=== PATIENT | female | born 1935 | race Two or more races ===

== ENCOUNTER 2019-05-11 13:24 | Inpatient (IN) | payer BC, OTHER ==
[~2019-05-11] VITALS: Ht 162.6 cm; Wt 88.5 kg
[2019-05-11] MEDS ORDERED: MEMA7CAP2 PO (14:08)
[2019-05-11] MEDS ORDERED: AMLO10TA7 PO (14:08)
[2019-05-11] MEDS ORDERED: ROPI0.257 PO (14:08)
[2019-05-11] MEDS ORDERED: CLOP75TA3 PO (14:08)
[2019-05-11] MEDS ORDERED: PREG75 PO (14:08)
[2019-05-11] MEDS ORDERED: LOSA50TA64 PO (14:08)
[2019-05-11] MEDS ORDERED: MEMA28CA5 PO (14:12)
[2019-05-11] MEDS ORDERED: ACETAMINOPHEN 500 MG TABLET PO ONE (14:15)
[2019-05-11 14:30] LABS: BASOPHILS % (AUTO) 0.8 % (0.0-2.0); HEMATOCRIT 33.8 % (36-46); HEMOGLOBIN 11.3 g/dL (12.0-16.0); LYMPHOCYTES # (AUTO) 0.5 K/uL (1.0-4.8); LYMPHOCYTES % (AUTO) 6.4 % (22.0-44.0); MEAN CORPUSCULAR HGB CONC 33.3 G/dL (31.0-37.0); MEAN CORPUSCULAR VOLUME 84 fL (80-100); MONOCYTES # (AUTO) 0.5 K/uL (0.1-1.0); MONOCYTES % (AUTO) 7.1 % (2.0-9.0); NEUTROPHILS # (AUTO) 6.2 K/uL (1.8-7.7); NEUTROPHILS % (AUTO) 83.7 % (40.0-70.0); PLATELET COUNT (AUTO) 288 K/uL (150-450); RED BLOOD CELL COUNT(AUTO) 4.02 MIL/uL (4.00-5.20); RED CELL DISTRIBUTION WIDTH 13.7 % (11.5-14.5)
[2019-05-11 14:50] LABS: ALBUMIN 2.2 g/dL (3.4-5.0); BILIRUBIN,TOTAL 0.3 mg/dL (0.1-1.0); CREATININE 2.43 mg/dL (0.60-1.30); POTASSIUM 3.9 mmol/L (3.5-5.1); TOTAL PROTEIN, SERUM 6.7 g/dL (6.4-8.2)
[2019-05-11] MEDS ORDERED: SODIUM CHLORIDE 0.9% 1,000 ML IV ONE (15:15)
[2019-05-11 15:43] LABS: PROTHROMBIN TIME 10.1 SEC (9.4-11.6)
[2019-05-11] MEDS ORDERED: HEPARIN SODIUM 25000 UNITS/D5W 250 ML IV PRN ×2 (16:00)
[2019-05-11] MEDS ORDERED: HEPARIN SODIUM,PORCINE 5,000 UNITS/ML VIAL IVP PRN ×2 (16:00)
[2019-05-11] MEDS ORDERED: HEPARIN SODIUM,PORCINE 5,000 UNITS/ML VIAL IVP ONE (16:00)
[2019-05-11] MEDS ORDERED: BISACODYL 10 MG RECTAL RECTAL SUPPOSITORY PR PRN (16:00)
[2019-05-11] MEDS: SODIUM CHLORIDE 0.9% 1,000 ML IV SCH (16:44)
[2019-05-11] MEDS ORDERED: MORPHINE SULFATE 2 MG/ML SYRINGE IVP ONE (16:45)
[2019-05-11] MEDS: MULTIVITAMINS WITH MINERALS, THERAPEUTIC TABLET PO SCH (17:23)
[2019-05-11 21:43] VITALS: BP 114/53
[2019-05-11] MEDS: DOCUSATE SODIUM 100 MG CAPSULE PO SCH (21:48)
[2019-05-12 00:23] VITALS: BP 111/73
[2019-05-12] MEDS ORDERED: PNEUMOCOCCAL VACCINE POLYVALENT 0.5 ML VIAL [PPSV23] IM ONE (01:30)
[2019-05-12] MEDS ORDERED: INFLUENZA VIRUS VACCINE QVS 2019-20 (3YR+)/PF 60 MCG/0.5 ML SYRINGE IM ONE (01:30)
[2019-05-12 04:00] VITALS: BP 122/61
[2019-05-12] MEDS: SODIUM CHLORIDE 0.9% 1,000 ML IV SCH ×2 (06:30→19:04)
[2019-05-12] MEDS: ACETAMINOPHEN 325 MG TABLET PO PRN ×2 (06:53→20:57)
[2019-05-12 07:34] LABS: CALCIUM, TOTAL 8.5 mg/dL (8.8-10.5); CREATININE 1.64 mg/dL (0.60-1.30); POTASSIUM 3.5 mmol/L (3.5-5.1)
[2019-05-12 07:47] LABS: APPEARANCE,URINE CLOUDY (CLEAR); BILIRUBIN,URINE NEGATIVE (NEGATIVE); GLUCOSE, URINE (UA) NEGATIVE (NEGATIVE); KETONES,URINE NEGATIVE (NEGATIVE); LEUKOCYTE ESTERASE ,URINE MODERATE (NEGATIVE); NITRATE,URINE NEGATIVE (NEGATIVE); OCCULT BLOOD,URINE MODERATE (NEGATIVE); PROTEIN,URINE NEGATIVE (NEGATIVE); UROBILINOGEN,URINE 0.2 mg/dL (<=1.0)
[2019-05-12 08:06] LABS: BACTERIA,URINE Many /HPF (None Seen); SQUAMOUS EPITHELIAL CELL,UR Many /LPF (None Seen)
[2019-05-12 08:23] VITALS: BP 115/72
[2019-05-12] MEDS: MULTIVITAMINS WITH MINERALS, THERAPEUTIC TABLET PO SCH (08:36)
[2019-05-12] MEDS: FAMOTIDINE 20 MG TABLET PO SCH (08:36)
[2019-05-12] MEDS: DOCUSATE SODIUM 100 MG CAPSULE PO SCH ×2 (08:36→20:57)
[2019-05-12] MEDS: MORPHINE SULFATE 2 MG/ML SYRINGE IVP PRN ×3 (10:16→21:54)
[2019-05-12] MEDS ORDERED: HEPARIN SODIUM,PORCINE 5,000 UNITS/ML VIAL IVP ONE (10:30)
[2019-05-12] MEDS ORDERED: HEPARIN SODIUM,PORCINE 5,000 UNITS/ML VIAL IVP PRN ×2 (10:30)
[2019-05-12] MEDS ORDERED: HEPARIN SODIUM 25000 UNITS/D5W 250 ML IV PRN (10:30)
[2019-05-12 10:53] LABS: BASOPHILS % (AUTO) 0.7 % (0.0-2.0); EOSINOPHILS % (AUTO) 3.7 % (1.0-6.0); HEMATOCRIT 32.1 % (36-46); HEMOGLOBIN 10.9 g/dL (12.0-16.0); LYMPHOCYTES # (AUTO) 0.6 K/uL (1.0-4.8); LYMPHOCYTES % (AUTO) 9.8 % (22.0-44.0); MEAN CORPUSCULAR HEMOGLOBIN 28.5 pg (26.0-34.0); MEAN CORPUSCULAR HGB CONC 33.9 G/dL (31.0-37.0); MEAN CORPUSCULAR VOLUME 84 fL (80-100); MONOCYTES # (AUTO) 0.4 K/uL (0.1-1.0); MONOCYTES % (AUTO) 7.7 % (2.0-9.0); NEUTROPHILS # (AUTO) 4.5 K/uL (1.8-7.7); NEUTROPHILS % (AUTO) 78.1 % (40.0-70.0); PLATELET COUNT (AUTO) 250 K/uL (150-450); RED BLOOD CELL COUNT(AUTO) 3.81 MIL/uL (4.00-5.20); RED CELL DISTRIBUTION WIDTH 13.6 % (11.5-14.5)
[2019-05-12 12:00] VITALS: BP 104/58
[2019-05-12 15:52] LABS: PROTHROMBIN TIME 10.5 SEC (9.4-11.6)
[2019-05-12 16:23] VITALS: BP 115/57
[2019-05-12 21:11] VITALS: BP 110/50
[2019-05-13] MEDS: ACETAMINOPHEN 325 MG TABLET PO PRN ×2 (00:37→09:12)
[2019-05-13 00:41] VITALS: BP 117/59
[2019-05-13] MEDS: MORPHINE SULFATE 2 MG/ML SYRINGE IVP PRN ×5 (01:51→22:56)
[2019-05-13 04:39] VITALS: BP 143/73
[2019-05-13 08:08] VITALS: BP 108/57
[2019-05-13 08:50] LABS: BASOPHILS % (AUTO) 0.8 % (0.0-2.0); EOSINOPHILS % (AUTO) 2.8 % (1.0-6.0); HEMATOCRIT 31.5 % (36-46); HEMOGLOBIN 10.5 g/dL (12.0-16.0); LYMPHOCYTES # (AUTO) 0.6 K/uL (1.0-4.8); LYMPHOCYTES % (AUTO) 12.4 % (22.0-44.0); MEAN CORPUSCULAR HEMOGLOBIN 28.1 pg (26.0-34.0); MEAN CORPUSCULAR HGB CONC 33.4 G/dL (31.0-37.0); MEAN CORPUSCULAR VOLUME 84 fL (80-100); MONOCYTES # (AUTO) 0.5 K/uL (0.1-1.0); NEUTROPHILS # (AUTO) 3.9 K/uL (1.8-7.7); PLATELET COUNT (AUTO) 219 K/uL (150-450); RED BLOOD CELL COUNT(AUTO) 3.74 MIL/uL (4.00-5.20); RED CELL DISTRIBUTION WIDTH 13.7 % (11.5-14.5)
[2019-05-13 08:54] LABS: CALCIUM, TOTAL 8.6 mg/dL (8.8-10.5); POTASSIUM 3.1 mmol/L (3.5-5.1)
[2019-05-13] MEDS: FAMOTIDINE 20 MG TABLET PO SCH (09:09)
[2019-05-13] MEDS: DOCUSATE SODIUM 100 MG CAPSULE PO SCH ×2 (09:09→20:59)
[2019-05-13] MEDS: MULTIVITAMINS WITH MINERALS, THERAPEUTIC TABLET PO SCH (09:09)
[2019-05-13] MEDS: SODIUM CHLORIDE 0.9% 1,000 ML IV SCH (09:09)
[2019-05-13] MEDS ORDERED: DEXTROSE 50%-WATER 25 GM/50 ML SYRINGE IVP PRN (11:00)
[2019-05-13 11:34] VITALS: BP 131/68
[2019-05-13] MEDS: INSULIN LISPRO 100 UNITS/ML SQ PRN ×2 (12:11→16:37)
[2019-05-13] MEDS: APIXABAN 5 MG TABLET PO SCH ×2 (12:40→20:59)
[2019-05-13] MEDS: POTASSIUM CHL 10 MEQ/WATER 50 ML IV PRN ×3 (13:50→16:36)
[2019-05-13 14:08] LABS: GLUCOMETER DEV NAME(LOC) 6N.2; GLUCOSE,POINT OF CARE 229 MG/DL (70-110)
[2019-05-13 15:29] VITALS: BP 137/76
[2019-05-13 16:42] LABS: GLUCOMETER DEV NAME(LOC) 6N.2; GLUCOSE,POINT OF CARE 183 MG/DL (70-110)
[2019-05-13] MEDS: LORazepam 2 MG/ML VIAL IVP PRN (17:30)
[2019-05-13 20:25] VITALS: BP 126/71
[2019-05-14] VITALS (7 sets, daily range): BP systolic 110–150; BP diastolic 70–106
[2019-05-14] MEDS: LORazepam 2 MG/ML VIAL IVP PRN (00:53)
[2019-05-14] MEDS: MORPHINE SULFATE 2 MG/ML SYRINGE IVP PRN ×2 (02:50→08:04)
[2019-05-14] MEDS: INSULIN LISPRO 100 UNITS/ML SQ PRN ×3 (06:34→21:40)
[2019-05-14 07:34] LABS: BASOPHILS % (AUTO) 0.7 % (0.0-2.0); EOSINOPHILS % (AUTO) 1.6 % (1.0-6.0); HEMATOCRIT 31.4 % (36-46); HEMOGLOBIN 10.7 g/dL (12.0-16.0); LYMPHOCYTES # (AUTO) 1.2 K/uL (1.0-4.8); MEAN CORPUSCULAR HEMOGLOBIN 28.5 pg (26.0-34.0); MEAN CORPUSCULAR HGB CONC 34.2 G/dL (31.0-37.0); MEAN CORPUSCULAR VOLUME 84 fL (80-100); MONOCYTES # (AUTO) 0.9 K/uL (0.1-1.0); MONOCYTES % (AUTO) 11.2 % (2.0-9.0); NEUTROPHILS # (AUTO) 5.6 K/uL (1.8-7.7); NEUTROPHILS % (AUTO) 71.5 % (40.0-70.0); PLATELET COUNT (AUTO) 242 K/uL (150-450); RED BLOOD CELL COUNT(AUTO) 3.75 MIL/uL (4.00-5.20)
[2019-05-14] MEDS: MULTIVITAMINS WITH MINERALS, THERAPEUTIC TABLET PO SCH (08:03)
[2019-05-14] MEDS: FAMOTIDINE 20 MG TABLET PO SCH (08:04)
[2019-05-14] MEDS: APIXABAN 5 MG TABLET PO SCH ×2 (08:04→21:31)
[2019-05-14] MEDS: DOCUSATE SODIUM 100 MG CAPSULE PO SCH ×2 (08:04→21:31)
[2019-05-14 09:17] LABS: ALANINE AMINOTRANSFERASE 38 U/L (12-78); ALBUMIN 2.4 g/dL (3.4-5.0); ALKALINE PHOSPHATASE 93 U/L (46-116); ANION GAP 8 mmol/L (8-16); ASPARTATE AMINOTRANSFERASE 22 U/L (15-37); BILIRUBIN,TOTAL 0.3 mg/dL (0.1-1.0); CALCIUM, TOTAL 9.2 mg/dL (8.8-10.5); CARBON DIOXIDE 28 mmol/L (22-29); CHLORIDE 103 mmol/L (98-107); CREATININE 0.81 mg/dL (0.60-1.30); GLUCOSE,RANDOM 157 mg/dL (70-110); POTASSIUM 3.3 mmol/L (3.5-5.1); SODIUM SERUM 139 mmol/L (136-145); TOTAL PROTEIN, SERUM 6.4 g/dL (6.4-8.2); UREA NITROGEN, BLOOD 39 mg/dL (7-18)
[2019-05-14 09:19] LABS: GLOMERULAR FILTR. RATE CALC > 60 mL/min (>60)
[2019-05-14] MEDS: POTASSIUM CHLORIDE 20 MEQ ER TABLET PO PRN (09:34)
[2019-05-14] MEDS: ACETAMINOPHEN 325 MG TABLET PO PRN ×2 (10:55→16:18)
[2019-05-14 12:33] LABS: GLUCOMETER DEV NAME(LOC) 6N.2; GLUCOSE,POINT OF CARE 172 MG/DL (70-110)
[2019-05-14] MEDS: HYDROCODONE/ACETAMINOPHEN 5-325 MG TABLET PO PRN ×2 (17:05→21:34)
[2019-05-15] MEDS: HYDROCODONE/ACETAMINOPHEN 5-325 MG TABLET PO PRN ×6 (01:36→20:55)
[2019-05-15 04:43] VITALS: BP 144/62
[2019-05-15] MEDS: INSULIN LISPRO 100 UNITS/ML SQ PRN ×3 (05:42→17:27)
[2019-05-15 06:12] LABS: GLUCOMETER DEV NAME(LOC) 6N.2; GLUCOSE,POINT OF CARE 149 MG/DL (70-110)
[2019-05-15 06:12] LABS: GLUCOMETER DEV NAME(LOC) 6N.2; GLUCOSE,POINT OF CARE 231 MG/DL (70-110)
[2019-05-15 06:12] LABS: GLUCOMETER DEV NAME(LOC) 6N.2; GLUCOSE,POINT OF CARE 177 MG/DL (70-110)
[2019-05-15 07:54] VITALS: BP 142/64
[2019-05-15] MEDS: FAMOTIDINE 20 MG TABLET PO SCH (08:54)
[2019-05-15] MEDS: MULTIVITAMINS WITH MINERALS, THERAPEUTIC TABLET PO SCH (08:54)
[2019-05-15] MEDS: DOCUSATE SODIUM 100 MG CAPSULE PO SCH ×2 (08:54→20:56)
[2019-05-15] MEDS: APIXABAN 5 MG TABLET PO SCH ×2 (10:47→20:55)
[2019-05-15 11:04] VITALS: BP 134/99
[2019-05-15 17:06] VITALS: BP 130/82
[2019-05-15] MEDS: ATORVASTATIN CALCIUM 20 MG TABLET PO SCH (20:55)
[2019-05-15 21:12] VITALS: BP 129/62
[2019-05-16 00:30] VITALS: BP 147/79
[2019-05-16] MEDS: HYDROCODONE/ACETAMINOPHEN 5-325 MG TABLET PO PRN ×4 (00:58→21:42)
[2019-05-16] MEDS: ACETAMINOPHEN 325 MG TABLET PO PRN (04:01)
[2019-05-16 05:00] VITALS: BP 132/76
[2019-05-16 05:52] LABS: BASOPHILS % (AUTO) 0.6 % (0.0-2.0); EOSINOPHILS % (AUTO) 1.5 % (1.0-6.0); HEMATOCRIT 30.9 % (36-46); HEMOGLOBIN 10.5 g/dL (12.0-16.0); LYMPHOCYTES # (AUTO) 1.3 K/uL (1.0-4.8); LYMPHOCYTES % (AUTO) 15.3 % (22.0-44.0); MEAN CORPUSCULAR HEMOGLOBIN 28.4 pg (26.0-34.0); MEAN CORPUSCULAR VOLUME 84 fL (80-100); MONOCYTES # (AUTO) 0.5 K/uL (0.1-1.0); MONOCYTES % (AUTO) 6.2 % (2.0-9.0); NEUTROPHILS # (AUTO) 6.7 K/uL (1.8-7.7); NEUTROPHILS % (AUTO) 76.4 % (40.0-70.0); PLATELET COUNT (AUTO) 235 K/uL (150-450); RED CELL DISTRIBUTION WIDTH 13.8 % (11.5-14.5)
[2019-05-16] MEDS: INSULIN LISPRO 100 UNITS/ML SQ PRN ×2 (06:53→18:42)
[2019-05-16 07:12] LABS: GLUCOMETER DEV NAME(LOC) 6N.2; GLUCOSE,POINT OF CARE 148 MG/DL (70-110)
[2019-05-16 07:13] LABS: GLUCOMETER DEV NAME(LOC) 6N.2; GLUCOSE,POINT OF CARE 123 MG/DL (70-110)
[2019-05-16 07:14] LABS: GLUCOMETER DEV NAME(LOC) 6N.2; GLUCOSE,POINT OF CARE 194 MG/DL (70-110)
[2019-05-16 07:14] LABS: GLUCOMETER DEV NAME(LOC) 6N.2; GLUCOSE,POINT OF CARE 122 MG/DL (70-110)
[2019-05-16 07:56] VITALS: BP 140/59
[2019-05-16] MEDS: APIXABAN 5 MG TABLET PO SCH ×2 (08:36→21:12)
[2019-05-16] MEDS: MULTIVITAMINS WITH MINERALS, THERAPEUTIC TABLET PO SCH (08:36)
[2019-05-16] MEDS: DOCUSATE SODIUM 100 MG CAPSULE PO SCH ×2 (08:37→21:12)
[2019-05-16] MEDS: FAMOTIDINE 20 MG TABLET PO SCH (08:37)
[2019-05-16 10:02] LABS: ANION GAP 11 mmol/L (8-16); CALCIUM, TOTAL 8.8 mg/dL (8.8-10.5); CARBON DIOXIDE 26 mmol/L (22-29); CHLORIDE 99 mmol/L (98-107); CREATININE 0.71 mg/dL (0.60-1.30); GLOMERULAR FILTR. RATE CALC > 60 mL/min (>60); GLUCOSE,RANDOM 200 mg/dL (70-110); POTASSIUM 3.2 mmol/L (3.5-5.1); SODIUM SERUM 136 mmol/L (136-145); UREA NITROGEN, BLOOD 20 mg/dL (7-18)
[2019-05-16] MEDS ORDERED: GADOBUTROL 1 MMOL/ML 10 ML VIAL IVP ONE (10:20)
[2019-05-16 11:29] VITALS: BP 116/64
[2019-05-16 12:17] LABS: GLUCOMETER DEV NAME(LOC) 6N.2; GLUCOSE,POINT OF CARE 101 MG/DL (70-110)
[2019-05-16 18:13] LABS: GLUCOMETER DEV NAME(LOC) 6N.2; GLUCOSE,POINT OF CARE 181 MG/DL (70-110)
[2019-05-16 19:48] VITALS: BP 145/69
[2019-05-16] MEDS: ATORVASTATIN CALCIUM 20 MG TABLET PO SCH (21:12)
[2019-05-17] MEDS: HYDROCODONE/ACETAMINOPHEN 5-325 MG TABLET PO PRN ×4 (01:59→21:05)
[2019-05-17 04:57] VITALS: BP 141/71
[2019-05-17] MEDS: POTASSIUM CHLORIDE 20 MEQ ER TABLET PO PRN (05:04)
[2019-05-17 05:30] LABS: GLUCOMETER DEV NAME(LOC) 6N.2; GLUCOSE,POINT OF CARE 105 MG/DL (70-110)
[2019-05-17 07:11] LABS: GLUCOMETER DEV NAME(LOC) 6N.2; GLUCOSE,POINT OF CARE 112 MG/DL (70-110)
[2019-05-17 08:31] VITALS: BP 133/66
[2019-05-17] MEDS ORDERED: SODIUM CHLORIDE 0.9% 1,000 ML IV ONE (09:22)
[2019-05-17] MEDS: FAMOTIDINE 20 MG TABLET PO SCH (10:19)
[2019-05-17] MEDS: MULTIVITAMINS WITH MINERALS, THERAPEUTIC TABLET PO SCH (10:19)
[2019-05-17] MEDS: APIXABAN 5 MG TABLET PO SCH ×2 (10:19→19:53)
[2019-05-17] MEDS: DOCUSATE SODIUM 100 MG CAPSULE PO SCH ×2 (10:19→19:53)
[2019-05-17] MEDS: POTASSIUM CHL 10 MEQ/WATER 50 ML IV PRN ×5 (10:20→23:11)
[2019-05-17 11:50] VITALS: BP 126/62
[2019-05-17 12:42] LABS: GLUCOMETER DEV NAME(LOC) 6N.2; GLUCOSE,POINT OF CARE 168 MG/DL (70-110)
[2019-05-17] MEDS: CefTRIAXone 1 GM/DEXTROSE 50 ML IV SCH (12:57)
[2019-05-17] MEDS: INSULIN LISPRO 100 UNITS/ML SQ PRN (13:04)
[2019-05-17 16:20] VITALS: BP 146/76
[2019-05-17] MEDS: ATORVASTATIN CALCIUM 20 MG TABLET PO SCH (19:53)
[2019-05-17 20:00] VITALS: BP 145/83
[2019-05-17 20:13] LABS: GLUCOMETER DEV NAME(LOC) 6N.2; GLUCOSE,POINT OF CARE 96 MG/DL (70-110)
[2019-05-17 23:54] LABS: GLUCOMETER DEV NAME(LOC) 6N.2; GLUCOSE,POINT OF CARE 118 MG/DL (70-110)
[2019-05-18] MEDS ORDERED: SODIUM CHLORIDE 0.9% 500 ML IV ONE (00:09)
[2019-05-18 00:13] VITALS: BP 141/71
[2019-05-18] MEDS: POTASSIUM CHL 10 MEQ/WATER 50 ML IV PRN ×3 (00:29→03:17)
[2019-05-18] MEDS: HYDROCODONE/ACETAMINOPHEN 5-325 MG TABLET PO PRN ×4 (02:52→18:20)
[2019-05-18 05:00] VITALS: BP 135/67
[2019-05-18 08:15] VITALS: BP 139/79
[2019-05-18] MEDS: FAMOTIDINE 20 MG TABLET PO SCH (08:55)
[2019-05-18] MEDS: DOCUSATE SODIUM 100 MG CAPSULE PO SCH (08:55)
[2019-05-18] MEDS: MULTIVITAMINS WITH MINERALS, THERAPEUTIC TABLET PO SCH (08:55)
[2019-05-18] MEDS: APIXABAN 5 MG TABLET PO SCH (08:55)
[2019-05-18] MEDS: CefTRIAXone 1 GM/DEXTROSE 50 ML IV SCH (08:55)
[2019-05-18 11:04] LABS: GLUCOMETER DEV NAME(LOC) 6N.2; GLUCOSE,POINT OF CARE 101 MG/DL (70-110)
[2019-05-18 12:00] VITALS: BP 145/77
[2019-05-18 12:42] LABS: GLUCOMETER DEV NAME(LOC) 6N.2; GLUCOSE,POINT OF CARE 102 MG/DL (70-110)
[2019-05-18 16:28] VITALS: BP 161/72
[2019-05-18] MEDS: INSULIN LISPRO 100 UNITS/ML SQ PRN (17:23)
[2019-05-18 21:44] LABS: GLUCOMETER DEV NAME(LOC) 6N.2; GLUCOSE,POINT OF CARE 99 MG/DL (70-110)
== END 2019-05-18 19:00 | DRG 562 ==
LOC: EMS 13:27 → 4E 21:01
PROVIDERS: ADMIT Internal Medicine; ATTEND Internal Medicine
PROC: 3E0234Z Introduction of Serum, Toxoid and Vaccine into Muscle, Percutaneous Approach (ICD-10-PCS; principal; 2019-05-18)
PROC: 3E02340 Introduction of Influenza Vaccine into Muscle, Percutaneous Approach (ICD-10-PCS; 2019-05-18)
DX: S82.61XA Displaced fracture of lateral malleolus of right fibula, initial encounter for closed fracture (principal); G93.41 Metabolic encephalopathy; N17.9 Acute kidney failure, unspecified; E87.1 Hypo-osmolality and hyponatremia; N39.0 Urinary tract infection, site not specified; I82.411 Acute embolism and thrombosis of right femoral vein; E87.6 Hypokalemia; E66.9 Obesity, unspecified; E11.9 Type 2 diabetes mellitus without complications; D32.9 Benign neoplasm of meninges, unspecified; M19.90 Unspecified osteoarthritis, unspecified site; I11.0 Hypertensive heart disease with heart failure; I50.9 Heart failure, unspecified; Z23 Encounter for immunization; F03.90 Unspecified dementia, unspecified severity, without behavioral disturbance, psychotic disturbance, mood disturbance, and anxiety; W18.39XA Other fall on same level, initial encounter; Y93.89 Activity, other specified; Y92.89 Other specified places as the place of occurrence of the external cause; Y99.8 Other external cause status; Z68.33 Body mass index [BMI] 33.0-33.9, adult
CPT/HCPCS: 70450; 70553; 72170; 82271; 84132; 87086; 90686; 90732; 93971; 96374; 97162; 97530; A9585; G0378; J0696; J1644; J2060; J2270; J3480; J7030; J7040